=== PATIENT | male | born 1955 | race Caucasian/White ===

== ENCOUNTER 2016-08-06 23:28 | Emergency (ER) | payer SELFPAY ==
[2016-08-06 23:53] VITALS: TEMP 97.6; BMI 25.7
[2016-08-07 00:40] LABS: LEUKOCYTES/URINE NEG (NEGATIVE); NITRITE/URINE NEG (NEGATIVE); RBC/URINE 20-30 (0-2); URINE OCCULT BLOOD 2+ (NEG/TRACE); WBC/URINE 0-2 (0-2)
--- NOTE | 2016-08-07 02:05 | DIRPT ---
CLINICAL DATA: Right flank pain and hematuria EXAM: CT ABDOMEN AND PELVIS WITHOUT CONTRAST TECHNIQUE: Multidetector CT imaging of the abdomen and pelvis was performed following the standard protocol without IV contrast. COMPARISON: None. FINDINGS: Lower chest and abdominal wall: Shallow fatty bilateral inguinal hernia. Hepatobiliary: Sub cm cysts in the inferior left liver.No evidence of biliary obstruction or stone. Pancreas: Fatty infiltration. No acute finding Spleen: Unremarkable. Adrenals/Urinary Tract: Negative adrenals. 3 mm distal right ureteral calculus, within 2 cm of the UVJ, with mild to moderate hydronephrosis. High-density renal papillary tips bilaterally from tiny calculi. No measurable nephrolithiasis. Unremarkable bladder. Reproductive:No pathologic findings. Stomach/Bowel: No obstruction. No appendicitis. Vascular/Lymphatic: Intermittent mild haziness of small bowel mesenteric fat without adenopathy and mass, likely incidental. No acute vascular finding. Atherosclerotic calcification of aorta. No mass or adenopathy. Peritoneal: No ascites or pneumoperitoneum. Musculoskeletal: No acute abnormalities. IMPRESSION: 1. Right hydronephrosis from 3 mm distal ureteral calculus. 2. Tiny bilateral renal calculi. Electronically Signed By: Kendall Damico M.D. On: 08/07/2016 02:02
[2016-08-07] MEDS ORDERED: OXYCODONE HCL 5 MG TABLET PO ONE (02:15)
[2016-08-07] MEDS ORDERED: KETOROLAC TROMETHAMINE 10 MG TAB PO ONE (02:15)
--- NOTE | 2016-08-07 02:15 | EDPRACDOC ---
- General Information Chief Complaint: Male Urogenital Problems Stated Complaint: LOWER RT SIDE PAIN Mode Of Arrival: Car Home Medications: Home Medications Ketorolac Tromethamine [Toradol] 10 mg PO Q6H PRN #20 tab 08/07/16 Oxycodone HCl/Acetaminophen [Percocet 5-325 mg Tablet] 1 each PO Q4 #20 tablet 08/07/16 Tamsulosin HCl [Flomax] 0.4 mg PO DAILY #30 cap.er.24h 08/07/16 Allergies/Adverse Reactions: Allergies Allergy/AdvReac Type Severity Reaction Status Date / Time No Known Allergies Allergy Verified 08/06/16 23:53 - History of Present Illness Onset: [employer] HPI: PATIENT PRESENTS C/O FLANK PAIN. DYSURIA. BEGAN TONIGHT SUDDEN KIDNEY STONE 20 YEARS AGO. Pain Began: Reports: Spontaneous Pain Location: Reports: Flank Pain Severity: Severe Pain Quality: Reports: Sharp Oral Intake: Normal Urinary Output: Normal Relevant History of: Reports: Urolithiasis Associated Signs and Symptoms: Reports: Dysuria ED Past Medical History - History Reviewed Yes Nurses notes reviewed and agree except as marked Travel Outside of [place] in the Last 3 Months?: No - Social Medical History ETOH: None Substance Abuse: None Lives With: Family Lives In: Home EDM Review of Systems - Review of Systems ROS Negative Except as Marked: Yes All systems reviewed and were negative except as marked Constitutional: No Symptoms Reported. negative: Fever, Chills, Weakness, Fatigue, Loss of Appetite Eyes: No Symptoms Reported. negative: Redness, Blurred Vision, Double Vision, Discharge, Pain, Light Sensitive, Photophobia Ears: No Symptoms Reported. negative: Pain, Hearing Loss, Drainage, Ear Pulling Throat: No Symptoms Reported. negative: Pain, Swelling Nose: No Symptoms Reported. negative: Congestion, Bleeding, Discharge, Injection, Swelling, Deformity, Ecchymosis, Tender, Abrasion, Laceration Mouth: No Symptoms Reported. negative: Pain, Drooling Respiratory: No Symptoms Reported. negative: Cough, Brassy Cough, Barky Cough, Shortness of Breath, Wheezing, Hemoptysis Cardiovascular: No Symptoms Reported. negative: Chest Pain, Palpitations, Syncope, Edema, Orthopnea, PND, Skin Mottling, Cyanosis Gastrointestinal: No Symptoms Reported. negative: Pain, Constipation, Nausea, Vomiting, Diarrhea, Melena, Formula Intolerance Genitourinary: Dysuria, Flank Pain. negative: Bleeding, Discharge, Frequency, Hematuria, , Testicular Pain Neurological: No Symptoms Reported. negative: Headache, Dizziness, Seizure, Numbness, Weakness, Speech Difficulty, Gait Difficulty Musculoskeletal: No Symptoms Reported. negative: Neck, Chestwall, Ribs, Back, Shoulder, Arm, Elbow, Forearm, Wrist, Hand, Pelvis, Hip, Femur, Knee, Leg, Ankle , Foot Integumentary: No Symptoms Reported. negative: Itching, Rash, Bruising, Wound Allergic/Immunologic: No Symptoms Reported. negative: Hives, Itching Hematologic: No Symptoms Reported. negative: Lymphadenopathy, Easy Bruising, Easy Bleeding Endocrine: No Symptoms Reported. negative: Weight Gain, Weight Loss Psychiatric: No Symptoms Reported. negative: Anxiety, Depression, Hallucinations, Insomnia, Suicidal - Physical Exam Constitutional: Alert (Awake), Distress (MILD) Oriented to: Time, Person, Place Last recorded Vital Signs: Last Vital Signs Temp 97.6 F 08/06/16 23:51 Pulse 67 08/06/16 23:51 Resp 20 08/06/16 23:51 BP 179/91 08/06/16 23:51 Pulse Ox 98 08/06/16 23:51 Oxygen Pulse Oxygen Saturation 98 O2 Device Room Air Oxygen Flow Rate Fraction of Inspired Oxygen ( FIO2) - HEENT Head: Normal ( normocephalic) Eye Exam: Normal (PERRL, EOMI, Sclera white) Oropharynx: Normal (Pharynx:Moist without exudate,Gums-no swelling) Tympanic Membrane: Normal ENT EAC: Normal TMJ: Normal Nose: No Symptoms Reported (septum midline) Neck: Normal (FROM, trachea at midline) - Respiratory/Cardiovascular Respiratory: Normal - CTA (BBS clear to auscultation without adventitious sounds ) Cardiovascular: Normal (RRR without murmur, gallop or rub) - GI Auscultation: Normal (NABS) Palpation: Normal (Soft,No rebound or guarding, non distended) Tenderness: Non tender Khanna's Sign: Negative - Bladder: Normal - Musculoskeletal Back: Normal (Non-Tender) Extremities: Normal (Normal tone, Pulses 2+ No cyanosis or edema, FROM) - Integumentary Skin: Normal, Warm, Dry Lymphatics: Normal (no adenopathy) - Neurologic Memory Impaired: Normal Motor Function: Normal (Normal tone, Pulses 2+ No cyanosis or edema, FROM) Cranial Nerve: Normal (CN II-X11 intact sensation, strength 5/5) Cerebellar: Normal Mood Description: Normal Perception: Normal - Results Urine Color Yellow 08/06/16 23:55 Urine Clarity Clear 08/06/16 23:55 Urine pH 5.0 (5.0-8.0) 08/06/16 23:55 Ur Specific [place] 1.020 (1.003-1.035) 08/06/16 23:55 Urine Protein Neg (NEG/TRACE) 08/06/16 23:55 Urine Glucose (UA) Neg (NEGATIVE) 08/06/16 23:55 Urine Ketones Neg (NEGATIVE) 08/06/16 23:55 Urine Occult Blood 2+ (NEG/TRACE) H 08/06/16 23:55 Urine Nitrite Neg (NEGATIVE) 08/06/16 23:55 Urine Bilirubin Neg (NEGATIVE) 08/06/16 23:55 Urine Urobilinogen <2.0 MG/DL (0-1) 08/06/16 23:55 Ur Leukocyte Esterase Neg (NEGATIVE) 08/06/16 23:55 Urine RBC 20-30 (0-2) H 08/06/16 23:55 Urine WBC 0-2 (0-2) 08/06/16 23:55 Urine Bacteria Few (NEG/FEW) 08/06/16 23:55 Urine Mucus Occ (NEG/OCC) 08/06/16 23:55 Urine Sperm Occ (NONE) H 08/06/16 23:55 Lab Results 08/06/16 23:55 Urine Color Yellow Urine Clarity Clear Urine pH 5.0 Ur Specific [place] 1.020 Urine Protein Neg Urine Glucose (UA) Neg Urine Ketones Neg Urine Occult Blood 2+ H Urine Nitrite Neg Urine Bilirubin Neg Urine Urobilinogen <2.0 Ur Leukocyte Esterase Neg Urine RBC 20-30 H Urine WBC 0-2 Urine Bacteria Few Urine Mucus Occ Urine Sperm Occ H Decision Time to Discharge: 02:23 - Departure Yes I personally saw and evaluated the patient. Disposition: Home Condition: Good Final Diagnosis: Kidney stone on right side Instructions: Kidney Stones (ED) Education/Counseling Given To: Patient Education/Counseling Given Regarding: Diagnosis, Treatment, Prognosis, Follow Up Referrals: None,No Provider [Primary Care Provider] - One Week Wayne Godfrey MD [Staff Physician] - One Week Prescriptions: New Ketorolac Tromethamine [Toradol] 10 mg PO Q6H PRN #20 tab PRN Reason: Pain Oxycodone HCl/Acetaminophen [Percocet 5-325 mg Tablet] 1 each PO Q4 #20 tablet Tamsulosin HCl [Flomax] 0.4 mg PO DAILY #30 cap.er.24h
[2016-08-07 03:01] VITALS: BP 160/86; PULSE 72
== END 2016-08-07 02:40 | disposition home or self-care (01) ==
LOC: ED 23:28
DX: N20.0 Calculus of kidney (principal)
CPT/HCPCS: 74176; 81001; 99283; J3490